=== PATIENT | female | born 1985 | race Caucasian/White ===

== ENCOUNTER 2019-06-04 09:52 | Emergency (ER) | payer BC, MEDICAID ==
--- NOTE | 2019-06-04 10:32 | ER Document Report ---
ED Medical Screen (RME) - General Chief Complaint: Passed Out Prior to Arrival Stated Complaint: FAINTING Time Seen by Provider: 06/04/19 10:26 Primary Care Provider: ONELIA VALERO [Primary Care Provider] - Follow up as needed Notes: Patient is a 33-year-old female who presents to the emergency department with after a possible syncopal episode. She was at the dentist office with her kids and went to the bathroom. She states that she felt nauseous and ended up "passing out." States she just did not feel well this morning. Patient has a [employer] pacemaker in. She is due for a new EP study, but has not been. Ernesto case is currently on propanolol. Exam: Sinus tachycardia. I have greeted and performed a rapid initial assessment of this patient. A comprehensive ED assessment and evaluation of the patient, analysis of test results and completion of medical decision making process will be conducted by an additional ED providers. TRAVEL OUTSIDE OF THE [place] IN LAST 30 DAYS: No - Related Data Allergies/Adverse Reactions: ciprofloxacin [From Cipro] Allergy (Mild, Verified 06/04/19 10:24) ciprofloxacin HCl [From Cipro] Allergy (Mild, Verified 06/04/19 10:24) bioxin Allergy (Mild, Uncoded 06/04/19 10:24) Past Medical History - Social History Chew tobacco use (# tins/day): No Frequency of alcohol use: None Drug Abuse: None - Past Medical History Cardiac Medical History: Reports: Hx Hypertension - BEING FOLLOWED/NO MEDS Denies: Hx Coronary Artery Disease, Hx Heart Attack Pulmonary Medical History: Denies: Hx Asthma, Hx Bronchitis, Hx COPD, Hx Pneumonia Neurological Medical History: Reports: Hx Migraine. Denies: Hx Cerebrovascular Accident, Hx Seizures GI Medical History: Reports: Hx Gastroesophageal Reflux Disease, Hx Irritable Bowel. Denies: Hx Hepatitis, Hx Hiatal Hernia, Hx Ulcer Musculoskeltal Medical History: Denies Hx Arthritis Psychiatric Medical History: Reports: Hx Anxiety, Hx Depression Infectious Medical History: Denies: Hx Hepatitis Past Surgical History: Reports: Hx Section, Hx Pacemaker - NEUROCARDIOGENIC SYNCOPE CARDIAC (STANDSTILL). Denies: Hx Hysterectomy, Hx Mastectomy, Hx Open Heart Surgery - Immunizations Hx Diphtheria, Pertussis, Tetanus Vaccination: No Physical Exam - Vital signs Vitals: Temp Pulse Resp BP Pulse Ox 97.4 F 116 H 24 H 125/97 H 98 06/04/19 10:11 06/04/19 10:11 06/04/19 10:11 06/04/19 10:11 06/04/19 10:11 Course - Vital Signs Vital signs: Temp Pulse Resp BP Pulse Ox 97.4 F 116 H 24 H 125/97 H 98 06/04/19 10:11 06/04/19 10:11 06/04/19 10:11 06/04/19 10:11 06/04/19 10:11 Doctor's Discharge - Discharge Referrals: LOCALMD,NO [Primary Care Provider] - Follow up as needed
[2019-06-04] MEDS ORDERED: ONDANSETRON HCL INJ/PF 4 MG/2 ML SDV IV ONE (10:33)
[2019-06-04] MEDS ORDERED: ONDANSETRON 4 MG TAB.RAPDIS PO ONE (10:53)
[2019-06-04 11:05] LABS: ABSOLUTE BASOPHILS # (AUTO) 0.1 10^3/uL (0.0-0.2); ABSOLUTE EOSINOPHILS # (AUTO) 0.1 10^3/uL (0.0-0.6); ABSOLUTE LYMPHOCYTES (AUTO) 1.8 10^3/uL (0.5-4.7); ABSOLUTE MONOCYTES (AUTO) 0.3 10^3/uL (0.1-1.4); ABSOLUTE NEUT (AUTO) 9.8 10^3/uL (1.7-8.2); BASOPHILS % (AUTO) 0.5 % (0-2); EOSINOPHILS % (AUTO) 0.5 % (0-6); HEMATOCRIT 48.1 % (36.0-47.0); HEMOGLOBIN 16.3 g/dL (12.0-15.5); LYMPHOCYTES % (AUTO) 14.7 % (13-45); MEAN CORPUSCULAR HGB CONC 33.9 g/dL (32.0-36.0); MEAN CORPUSCULAR VOLUME 86 fl (80-97); MONOCYTES % (AUTO) 2.6 % (3-13); PLATELET COUNT 287 10^3/uL (150-450); RED BLOOD COUNT 5.61 10^6/uL (3.72-5.28); RED CELL DISTRIBUTION WIDTH 13.5 % (11.5-14.0); SEGMENTED NEUTROPHILS % (AUTO) 81.7 % (42-78); TOTAL CELLS COUNTED % (AUTO) 100 %
[2019-06-04 11:24] LABS: ALBUMIN 4.5 g/dL (3.5-5.0); ALKALINE PHOSPHATASE 94 U/L (38-126); ANION GAP 13 (5-19); ASPARTATE AMINO TRANSFERASE 29 U/L (14-36); BILIRUBIN,DIRECT 0.2 mg/dL (0.0-0.4); BILIRUBIN,TOTAL 0.6 mg/dL (0.2-1.3); BLOOD UREA NITROGEN 12 mg/dL (7-20); CARBON DIOXIDE 24 mmol/L (22-30); CHLORIDE 101 mmol/L (98-107); CREATINE KINASE 64 U/L (30-135); GLUCOSE 125 mg/dL (75-110); POTASSIUM 4.7 mmol/L (3.6-5.0); TOTAL PROTEIN 8.3 g/dL (6.3-8.2)
--- NOTE | 2019-06-04 11:36 | EKG REPORT ---
SEVERITY:- ABNORMAL ECG - ATRIAL-PACED COMPLEXES : Confirmed by: Kyara Mcmillan MD 04-Jun-2019 11:35:40
--- NOTE | 2019-06-04 12:01 | RADIOLOGY REPORT (SQ) ---
EXAM DESCRIPTION: CHEST SINGLE VIEW COMPLETED DATE/TIME: 06/04/2019 11:48 am REASON FOR STUDY: syncope COMPARISON: PA and lateral views of the chest from 06/04/2015. EXAM PARAMETERS: NUMBER OF VIEWS: One view. TECHNIQUE: An AP view of the chest was obtained. RADIATION DOSE: NA LIMITATIONS: None. FINDINGS: LUNGS AND PLEURA: No consolidation, pleural effusion or pneumothorax. MEDIASTINUM AND HILAR STRUCTURES: No mediastinal or hilar contour abnormality. HEART AND VASCULAR STRUCTURES: The cardiac silhouette and pulmonary vasculature are within normal epstein its. BONES: No acute findings. HARDWARE: None in the chest. OTHER: No other finding. IMPRESSION: No acute cardiopulmonary process. TECHNICAL DOCUMENTATION: JOB ID: [id number] [employer]- All Rights Reserved Reading location - IP/workstation name: [email or web address]
--- NOTE | 2019-06-04 12:42 | ER Document Report ---
ED Syncope and Near Syncope - General Chief Complaint: Passed Out Prior to Arrival Stated Complaint: FAINTING Time Seen by Provider: 06/04/19 10:26 Primary Care Provider: ONELIA VALERO [Primary Care Provider] - Follow up as needed Notes: Patient is a 33-year-old female with a history of neurocardiogenic syncope who presents to the emergency department with a chief complaint of syncope. Patient reports this morning around 9 AM she was at the dentist with her kids when she began to feel nauseous and dizzy. Patient reports that she did go to the restroom and lay down on the floor. Patient reports that the staff in the office did come to her side and stated that she was "out of it." Patient is unsure how long she was out of it. They did administer oxygen and patient did arouse. Patient reports she did not have any cardiac symptoms before and after the fact. Patient denies chest pain, shortness of breath, palpitations. Patient reports the last time she passed out was at the beginning of February. Patient reports at that time she did have her pacemaker interrogated and was found that she had a short episode of tachycardia with a heart rate of 233. Patient reports she does feel her normal at this time. Patient does report taking propranolol 80 mg daily. Patient did have her dose this morning. Rico lambert reports that her pacemaker is [employer]ron[employer]. Patient reports she is in between a needlemaker but the last one that she saw was Dr. Strong at [facility]. Patient reports any recent illness such as vomiting, fever, diarrhea. Patient reports she does have IBS and that daily diarrhea is not abnormal for her. TRAVEL OUTSIDE OF THE [place] IN LAST 30 DAYS: No - Related Data Allergies/Adverse Reactions: ciprofloxacin [From Cipro] Allergy (Mild, Verified 06/04/19 10:24) ciprofloxacin HCl [From Cipro] Allergy (Mild, Verified 06/04/19 10:24) bioxin Allergy (Mild, Uncoded 06/04/19 10:24) Past Medical History - General Information source: Patient - Social History Smoking Status: Unknown if Ever Smoked Chew tobacco use (# tins/day): No Frequency of alcohol use: None Drug Abuse: None Lives with: Family Family History: Reviewed & Not Pertinent Patient has suicidal ideation: No Patient has homicidal ideation: No - Past Medical History Cardiac Medical History: Reports: Hx Hypertension - BEING FOLLOWED/NO MEDS, Other - Neuro cardiogenic syncope Denies: Hx Coronary Artery Disease, Hx Heart Attack Pulmonary Medical History: Reports: None Denies: Hx Asthma, Hx Bronchitis, Hx COPD, Hx Pneumonia EENT Medical History: Reports: None Neurological Medical History: Reports: Hx Migraine. Denies: Hx Cerebrovascular Accident, Hx Seizures Endocrine Medical History: Reports: None Renal/ Medical History: Reports: None Malignancy Medical History: Reports: None GI Medical History: Reports: Hx Gastroesophageal Reflux Disease, Hx Irritable Bowel. Denies: Hx Hepatitis, Hx Hiatal Hernia, Hx Ulcer Musculoskeletal Medical History: Reports None, Denies Hx Arthritis Skin Medical History: Reports None Psychiatric Medical History: Reports: Hx Anxiety, Hx Depression Traumatic Medical History: Reports: None Infectious Medical History: Reports: None. Denies: Hx Hepatitis Past Surgical History: Reports: Hx Section, Hx Pacemaker - NEUROCARDIOGENIC SYNCOPE CARDIAC (STANDSTILL). Denies: Hx Hysterectomy, Hx Mastectomy, Hx Open Heart Surgery - Immunizations Hx Diphtheria, Pertussis, Tetanus Vaccination: No Review of Systems - Review of Systems Constitutional: See HPI EENT: No symptoms reported Cardiovascular: See HPI Respiratory: No symptoms reported Gastrointestinal: No symptoms reported Genitourinary: No symptoms reported Female Genitourinary: No symptoms reported Musculoskeletal: No symptoms reported Skin: No symptoms reported Hematologic/Lymphatic: No symptoms reported Neurological/Psychological: No symptoms reported Physical Exam - Vital signs Vitals: Temp Pulse Resp BP Pulse Ox 97.4 F 116 H 24 H 125/97 H 98 06/04/19 10:11 06/04/19 10:11 06/04/19 10:11 06/04/19 10:11 06/04/19 10:11 Interpretation: Tachycardic Notes: Patient was initially tachycardic with a heart rate of 116. - Notes Notes: GENERAL: Well-appearing, well-nourished and in no acute distress. HEAD: Atraumatic, normocephalic. EYES: Pupils equal round and reactive to light, extraocular movements intact, sclera anicteric, conjunctiva are normal. ENT: Nares patent, oropharynx clear without exudates. Moist mucous membranes. NECK: Normal range of motion, supple without lymphadenopathy or JVD. LUNGS: Breath sounds clear to auscultation bilaterally and equal. No wheezes rales or rhonchi. HEART: Regular rate and rhythm without murmurs, rubs or gallops. ABDOMEN: Soft, obese, nontender, normoactive bowel sounds. No guarding, no rebound. No masses appreciated. BACK: No cervical, thoracic, lumbar midline tenderness. No saddle anesthesia, normal distal neurovascular exam. GENITOURINARY: Deferred. EXTREMITIES: Normal range of motion, no pitting or edema. No clubbing or cyanosis. NEUROLOGICAL: Cranial nerves II through XII grossly intact. Normal speech, normal gait. PSYCH: Normal mood, normal affect. SKIN: Warm, Dry, normal turgor, no rashes or lesions noted. Course - Re-evaluation Re-evalutation: 06/04/19 12:40 Upon initial evaluation patient is resting comfortably on stretcher no acute distress. Patient heart rate is 95 and a sinus rhythm. Patient's blood pressure 127/102. Patient's oxygen level is 96% on room air. Patient currently denies chest pain, shortness breath, dizziness. Patient reports she feels much better after episode of syncope this morning. Initial lab work was unremarkable. Waiting on service liaison representative from [employer] to come and interrogate the patient's pacemaker. Significant other is at the bedside. We will continue to monitor. 06/04/19 14:32 Aircraft Log Clerk at the bedside for pacemaker interrogation. 06/04/19 14:46 Maninder from [employer]'s performed a pacemaker interrogation. He states that today the patient did not reveal any tachycardia, significant bradycardia or arrhythmias. He states last time the patient has significant rhythm change was back in February. Patient reports at that time she did have a syncopal episode. Patient denies chest pain, has been asymptomatic since being here in the emergency department. Patient heart rate currently sinus tach at 105. Patient is not hypotensive with a heart rate of 123/74. Patient reports she does have a follow-up appointment with an EP doctor at [facility] Dr. Olivares on July 01. 06/04/19 15:35 Patient's second troponin was negative. Patient has remained asymptomatic, tolerating liquids p.o. Patient continue her propranolol and to follow-up with the EP physician at [facility]. Patient and significant other given strict return precautions. - Vital Signs Vital signs: Temp Pulse Resp BP Pulse Ox 97.4 F 116 H 18 108/64 96 06/04/19 10:11 06/04/19 10:11 06/04/19 14:00 06/04/19 13:01 06/04/19 14:00 - Laboratory Result Diagrams: 06/04/19 10:40 06/04/19 10:40 Laboratory results interpreted by me: 06/04/19 06/04/19 10:40 10:40 WBC 12.0 H RBC 5.61 H Hgb 16.3 H Hct 48.1 H [place] % (Auto) 2.6 L Absolute Neuts (auto) 9.8 H Seg Neutrophils % 81.7 H Glucose 125 H Total Protein 8.3 H - Diagnostic Test Radiology reviewed: Reports reviewed Radiology results interpreted by me: 06/04/19 15:32 Chest X-Ray 06/04/19 10:31 IMPRESSION: No acute cardiopulmonary process. - EKG Interpretation by Me Additional EKG results interpreted by me: 06/04/19 12:41 Patient's EKG shows a sinus tach with a heart rate of 107. Patient's MS interval is 172, QT is 344 and QTC is 459. Patient is a left axis deviation. There is no ST segment changes in consecutive leads. No previous EKG for comparison. Discharge - Discharge Clinical Impression: Syncope, near Condition: Stable Disposition: HOME, SELF-CARE Additional Instructions: *Today was seen in the emergency department after experiencing a syncopal episode at the dentist office. We did have your pacemaker interrogated which did not show anything that was concerning such as a fast heart rate, slow heart rate or arrhythmia. The last known tachycardia was back in February. You have been asymptomatic since being here in the emergency department. We have checked your electrolytes and blood work which was unremarkable. Your cardiac enzymes x2 were also negative. Please continue to rest over the next few days, hydrate adequately and return to the emergency department if you have any dizziness, chest pain, palpitations or any new or worsening symptoms. *Please follow-up with the EP doctor on July 01 as previously scheduled, Dr. Olivares at [facility]. Syncopal Episode Syncope (fainting or near-fainting) can occur from many different health problems. Or it can be a simple fainting spell requiring no treatment. It is safe for you to go home, but further evaluation will likely be necessary. Your work-up may include tests for internal bleeding, heart disease, medication problems, or near-strokes. Tests are not always required, however, depending on the nature of your problem. The warning signs of an impending faint include: dizziness, lightheadedness, nausea, hot flashes, tingling, and weakness. If this happens, lay down and put your feet up, then wait until all of these symptoms have passed before standing up again. If these episodes become recurrent, or if you develop chest pain, heart palpitations, mental confusion, blurred vision, or headache, then you should call the physician, or go to the emergency room. Referrals: LOCALMD,NO [Primary Care Provider] - Follow up as needed
[2019-06-04 15:54] VITALS: BP 109/81
== END 2019-06-04 15:59 | disposition home or self-care (01) ==
LOC: ER 09:52
DX: R55 Syncope and collapse (principal); R11.0 Nausea; R42 Dizziness and giddiness; Z88.3 Allergy status to other anti-infective agents; K58.0 Irritable bowel syndrome with diarrhea; Z95.0 Presence of cardiac pacemaker
CPT/HCPCS: 93005; 99284; 36415; 82550; 83690; 84703; 85025; 80053; 84484; 71045; 93010; S0119